=== PATIENT | female | born 1975 | race Caucasian/White ===

== ENCOUNTER 2016-09-28 19:51 | Inpatient (IN) | payer BC ==
[2016-09-28] MEDS ORDERED: TRANEXAMIC ACID 1,000 MG in SODIUM CHLORIDE 0.9% 100 ML IV STA (19:58)
[2016-09-28] MEDS ORDERED: TRANEXAMIC ACID 1,000 MG in SODIUM CHLORIDE 0.9% 250 ML IV ONE (19:59)
[2016-09-28] MEDS ORDERED: RX INFO: IV CONTRAST WAS GIVEN 1 EACH MISC MISCELLANE PRN (20:07)
--- NOTE | 2016-09-28 20:23 | XR ---
EXAMINATION TYPE: XR pelvis AP view DATE OF EXAM: 09/28/2016 CLINICAL HISTORY: Pain after injury TECHNIQUE: A single AP view of the pelvis is obtained. COMPARISON: None. FINDINGS: There is no acute fracture/dislocation evident in the pelvis. The hip and sacroiliac join ts appear symmetric and unremarkable. The overlying soft tissue appears unremarkable. IMPRESSION: There is no acute fracture or dislocation in the pelvis.
--- NOTE | 2016-09-28 20:24 | XR ---
EXAMINATION TYPE: XR chest 1V portable DATE OF EXAM: 09/28/2016 COMPARISON: NONE HISTORY: Pain after injury TECHNIQUE: Single supine frontal view of the chest is obtained. FINDINGS: There is no focal air space opacity, pleural effusion, or pneumothorax seen. The cardiac silhouette size is within normal limits. The osseous structures are intact. IMPRESSION: No acute process.
[2016-09-28 20:27] LABS: Glucose,Whole Blood 117 mg/dL (75-99)
[2016-09-28 20:43] LABS: Basophils % (A) 0 %; CH 35.6; CHCM 34.2; Eosinophils # (A) 0.1 k/uL (0-0.7); Eosinophils % (A) 2 %; HCT 34.9 % (34.0-46.0); HDW 2.58; HGB 12.1 gm/dL (11.4-16.0); Luc # (Auto) 0.08; Luc % (Auto) 1; Lymphocytes # (A) 1.4 k/uL (1.0-4.8); Lymphocytes % (A) 16 %; MCH 36.1 pg (25.0-35.0); MCHC 34.5 g/dL (31.0-37.0); MCV 104.6 fL (80.0-100.0); Macrocytosis Moderate; Mean Platelet Volume 8.9; Monocytes # (A) 0.3 k/uL (0-1.0); Monocytes % (A) 4 %; Neutrophils # (A) 6.6 k/uL (1.3-7.7); Neutrophils % (A) 78 %; RBC 3.34 m/uL (3.80-5.40); RDW 15.4 % (11.5-15.5); WBC 8.6 k/uL (3.8-10.6); WBC (Perox) 8.69
[2016-09-28 20:51] LABS: INR 1.3 (<1.1); Partial Thromboplastin Time 25.8 sec (22.0-30.0); Prothrombin Time 13.2 sec (9.0-12.0)
[2016-09-28 20:52] LABS: ALT 38 U/L (9-52); AST 47 U/L (14-36); Alcohol 69 mg/dL; Alkaline Phosphatase 67 U/L (38-126); Amylase 42 U/L (30-110); Anion Gap 10 mmol/L; Blood Urea Nitrogen 6 mg/dL (7-17); Calcium 7.6 mg/dL (8.4-10.2); Carbon Dioxide 17 mmol/L (22-30); Chloride 114 mmol/L (98-107); Glucose 150 mg/dL (74-99); Non-African American GFR(MDRD) >60 (>60 ml/min/1.73 sqM); Potassium 3.7 mmol/L (3.5-5.1); Sodium 141 mmol/L (137-145); Total Protein 5.1 g/dL (6.3-8.2)
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
[2016-09-28] MEDS ORDERED: NALOXONE 0.4 MG/ML 1 ML VIAL IV PRN (20:58)
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
[2016-09-28] MEDS ORDERED: fentaNYL (PF) 50 MCG/ML 2 ML AMP ONE (21:02)
[2016-09-28] MEDS ORDERED: GLYCOPYRROLATE 0.2 MG/ML 2 ML VIAL ONE (21:02)
[2016-09-28] MEDS ORDERED: SUCCINYLCHOLINE CHLORIDE 100 MG/5 ML SYR IV ONE (21:02)
[2016-09-28] MEDS ORDERED: ETOMIDATE 2 MG/ML 10 ML VIAL ONE (21:02)
[2016-09-28] MEDS ORDERED: NEOSTIGMINE 1 MG/ML 10 ML VIAL ONE (21:02)
[2016-09-28] MEDS ORDERED: LACTATED RINGERS 1,000 ML IV ONE ×3 (21:02→23:14)
[2016-09-28] MEDS ORDERED: ALBUMIN HUMAN 5% 250 ML BOTTLE IVPB ONE (21:02)
[2016-09-28] MEDS ORDERED: LIDOCAINE 1% INJ 10MG/ML (20 ML MDV) ONE (21:02)
[2016-09-28] MEDS ORDERED: MIDAZOLAM 2 MG/2 ML VIAL ONE (21:02)
[2016-09-28] MEDS ORDERED: PHENYLEPHRINE-0.9% NACL SYG 1 MG/10 ML SYRINGE ONE (21:02)
[2016-09-28] MEDS ORDERED: ROCURONIUM BROMIDE 10 MG/ML 10 ML VIAL IV ONE (21:02)
[2016-09-28] MEDS ORDERED: ONDANSETRON 4 MG/2 ML VIAL ONE (21:02)
[2016-09-28] MEDS ORDERED: SODIUM CHLORIDE 0.9% 100 ML with ceFAZolin 2,000 MG IV ONE ×2 (21:17)
[2016-09-28] MEDS ORDERED: AMPICILLIN 1,000 MG in SODIUM CHLORIDE 0.9% 50 ML IVPB STA (21:29)
[2016-09-28] MEDS ORDERED: metroNIDAZOLE-NS PMX 500 MG in SALINE 1 100ML.BAG IVPB STA (21:30)
[2016-09-28] MEDS ORDERED: GENTAMICIN IN NACL ISO-OSM PMX 80 MG in SALINE 1 100ML.BAG IVPB STA (21:31)
[2016-09-28] MEDS ORDERED: BUPIVACAINE (PF) 0.25% 30 ML VIAL SQ ONE ×2 (21:59)
--- NOTE | 2016-09-28 22:13 | P.OP ---
Date of Procedure: 09/28/16 Preoperative Diagnosis: Vaginal hemorrhage Vaginal laceration Postoperative Diagnosis: Vaginal hemorrhage Left Vaginal sidewall and sulcus laceration Procedure(s) Performed: Pair of left vaginal sidewall and sulcus laceration Implants: Anesthesia: SHERRONA Surgeon: Whit Madden Estimated Blood Loss (ml): 30 IV fluids (ml): 1,000 Urine output (ml): 250 Pathology: none sent Condition: stable Disposition: PACU Indications for Procedure: Vaginal hemorrhage with large vaginal laceration Operative Findings: Gaping T shaped left vaginal sidewall laceration beginning 3 cm distal to the hymeneal ring to posterior and left of the cervix Description of Procedure: The patient was transported from the emergency room to the operating room where general anesthetic was administered without incident. She was in positioned, prepped and draped in the dorsal high lithotomy position. Ziegler catheter was placed and copious clear urine was obtained. The vagina was carefully prepped. Weighted speculum was placed in the vagina and an anterior retractor was placed. A large gaping laceration starting from approximately 3 cm distal to the hymeneal ring extending to the posterior fourchette and sulcus in a T- shaped fashion. 0 Vicryl suture was utilized to repair the top of the T shape laceration. 3 interrupted sutures were then placed deep in the sulcal laceration to reapproximate the tissue. The vaginal laceration was then closed in a running locked fashion to the base of the T-shaped laceration. The rest of the vagina was thoroughly inspected including the cervix and no further lacerations were noted. Careful rectal examination was performed and did not appear to be any suture involvement in the rectum and there was no palpable mass consistent with hematoma. The case was then turned over to Dr. Oliver for diagnostic laparoscopy.
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
[2016-09-28] MEDS ORDERED: HYDROcodone/APAP 5-325MG 1 EACH TAB PO PRN (22:18)
[2016-09-28 23:02] LABS: Anisocytosis Slight; Basophils % (A) 0 %; CH 32.4; CHCM 33.7; Eosinophils # (A) 0.1 k/uL (0-0.7); Eosinophils % (A) 1 %; HCT 34.5 % (34.0-46.0); HDW 2.67; HGB 12.3 gm/dL (11.4-16.0); Luc # (Auto) 0.09; Luc % (Auto) 1; Lymphocytes # (A) 0.8 k/uL (1.0-4.8); Lymphocytes % (A) 10 %; MCH 34.4 pg (25.0-35.0); MCHC 35.6 g/dL (31.0-37.0); Macrocytosis Slight; Mean Platelet Volume 7.7; Monocytes # (A) 0.3 k/uL (0-1.0); Monocytes % (A) 4 %; Neutrophils # (A) 6.7 k/uL (1.3-7.7); Neutrophils % (A) 84 %; RBC 3.57 m/uL (3.80-5.40); RDW 16.8 % (11.5-15.5); WBC (Perox) 7.87
[2016-09-28 23:08] LABS: MCV 96.6 fL (80.0-100.0)
[2016-09-28 23:47] LABS: Glucose,Whole Blood 121 mg/dL (75-99)
[2016-09-28] MEDS: ONDANSETRON 4 MG/2 ML VIAL IVP PRN (23:57)
[2016-09-28] MEDS: HYDROmorphone 1 MG/ML 1 ML SYRINGE IVP PRN (23:58)
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
[2016-09-29] MEDS ORDERED: AMPICILLIN 1,000 MG in SODIUM CHLORIDE 0.9% 50 ML IVPB SCH ×2
[2016-09-29] MEDS: HEPARIN SODIUM,PORCINE 5,000 UNIT/ML 1 ML VIAL SQ SCH ×3 (00:25→17:03)
[2016-09-29] MEDS ORDERED: ACETAMINOPHEN IV (For NPO) 1,000 MG in EMPTY BAG 1 BAG IVPB ONE (00:35)
[2016-09-29] MEDS: METOCLOPRAMIDE 5 MG/ML 2 ML VIAL IVP PRN ×4 (00:53→19:29)
[2016-09-29 01:18] VITALS: BMI 21.6
[2016-09-29 02:31] LABS: Appearance,Urine Clear (Clear); Bilirubin,Urine Negative (Negative); Glucose,Urine (UA) Negative (Negative); Ketones,Urine Negative (Negative); Leukocyte Esterase,Urine Negative (Negative); Nitrite,Urine Negative (Negative); Protein,Urine Negative (Negative); Specific Gravity,Urine 1.014 (1.001-1.035); UA Billing (MACRO vs. MICRO) CHEM; Urobilinogen,Urine <2.0 mg/dL (<2.0)
[2016-09-29] MEDS: HYDROmorphone 1 MG/ML 1 ML SYRINGE IVP PRN ×7 (02:57→22:35)
[2016-09-29] MEDS: diphenhydrAMINE 50 MG/ML 1 ML VIAL IVP PRN ×2 (04:58→11:59)
[2016-09-29 05:07] LABS: ALT 32 U/L (9-52); AST 34 U/L (14-36); Alkaline Phosphatase 49 U/L (38-126); Amylase 32 U/L (30-110); Anion Gap 5 mmol/L; Blood Urea Nitrogen 4 mg/dL (7-17); Calcium 6.9 mg/dL (8.4-10.2); Carbon Dioxide 21 mmol/L (22-30); Chloride 111 mmol/L (98-107); Glucose 105 mg/dL (74-99); Magnesium 1.4 mg/dL (1.6-2.3); Non-African American GFR(MDRD) >60 (>60 ml/min/1.73 sqM); Phosphorous 2.2 mg/dL (2.5-4.5); Potassium 3.9 mmol/L (3.5-5.1); Sodium 137 mmol/L (137-145); Total Bilirubin 2.1 mg/dL (0.2-1.3); Total Protein 4.7 g/dL (6.3-8.2)
[2016-09-29 05:43] LABS: Anisocytosis Slight; Basophils % (A) 0 %; CH 32.7; CHCM 33.9; Eosinophils # (A) 0.1 k/uL (0-0.7); Eosinophils % (A) 1 %; HCT 31.7 % (34.0-46.0); HDW 2.73; HGB 10.9 gm/dL (11.4-16.0); Luc # (Auto) 0.08; Luc % (Auto) 1; Lymphocytes # (A) 1.3 k/uL (1.0-4.8); Lymphocytes % (A) 17 %; MCH 33.5 pg (25.0-35.0); MCHC 34.6 g/dL (31.0-37.0); MCV 96.8 fL (80.0-100.0); Macrocytosis Slight; Mean Platelet Volume 8.2; Monocytes # (A) 0.4 k/uL (0-1.0); Monocytes % (A) 5 %; Neutrophils # (A) 5.8 k/uL (1.3-7.7); Neutrophils % (A) 76 %; RBC 3.27 m/uL (3.80-5.40); RDW 17.6 % (11.5-15.5); WBC 7.7 k/uL (3.8-10.6); WBC (Perox) 7.95
[2016-09-29] MEDS ORDERED: GENTAMICIN 120 MG in SODIUM CHLORIDE 0.9% 100 ML IVPB SCH (06:00)
[2016-09-29] MEDS ORDERED: SODIUM PHOSPHATE 10 MMOL in SODIUM CHLORIDE 0.9% 250 ML IVPB ONE (07:00)
[2016-09-29] MEDS: MAGNESIUM SULFATE-D5W PMX 1 GM in DEXTROSE/WATER 1 100ML.BAG IVPB SCH ×3 (07:39→10:46)
[2016-09-29] MEDS: metroNIDAZOLE-NS PMX 500 MG in SALINE 1 100ML.BAG IVPB SCH ×2 (07:43→17:01)
[2016-09-29] MEDS: DOCUSATE 100 MG CAP PO SCH ×2 (08:13→20:50)
[2016-09-29] MEDS ORDERED: PANTOPRAZOLE 40 MG/10 ML VIAL IV SCH (09:00)
--- NOTE | 2016-09-29 09:19 | P.PN ---
Subjective Principal diagnosis: Traumatic vaginal laceration She is resting comfortably this morning complaining of some moderate lower abdominal cramping and pressure. No active vaginal bleeding throughout the night. 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 Objective - Vital Signs Vital signs: Vital Signs Temp 99.1 F 09/29/16 08:00 Pulse 77 09/29/16 09:00 Resp 19 09/29/16 09:00 BP 88/59 09/29/16 09:00 Pulse Ox 95 09/29/16 09:00 Intake & Output 09/28/16 09/29/16 09/29/16 18:59 06:59 18:59 Intake Total 6210 325 Output Total 2210 82 Balance 4000 243 Weight 66.5 kg Intake: IV 2950 325 ACETAMINOPHEN IV (For NPO 100 ) 1,000 mg In Empty Bag 1 bag @ 400 mls/hr IVPB ONCE ONE Rx#:[id number] D5-0.45% NaCl with KCl 1000 125 20Meq/l 1,000 ml @ 125 mls/hr IV .Q8H LACEY Rx#: [id number] Gentamicin 120 mg In 100 Sodium Chloride 0.9% 100 ml @ 100.98 mls/hr IVPB Q8H LACEY Rx#:[id number] Magnesium Sulfate-D5w Pmx 100 1 gm In Dextrose/Water 1 100ml.bag @ 100 mls/hr IVPB Q1H LACEY Rx#: [id number] metroNIDAZOLE-NS PMX 500 100 mg In Saline 1 100ml.bag @ 100 mls/hr IVPB Q8HR LACEY Rx#:[id number] Amount of Fluid Infused ( 3200 ml) Oral 60 Output: Urine 2030 82 Emesis 150 Estimated Blood Loss 30 Other: Voiding Method Indwelling Catheter Indwelling Catheter - Exam Abdomen is slim and soft with mild tenderness. Nondistended, no rebound and no guarding. Examination of the external genitalia reveals no active vaginal bleeding - Labs CBC & Chem 7: 09/29/16 04:38 09/29/16 04:38 Labs: Abnormal Lab Results - Last 24 Hours (Table) 09/28/16 09/28/16 09/28/16 Range/Units 20:07 20:15 20:15 RBC 3.34 L (3.80-5.40) m/uL Hgb (11.4-16.0) gm/dL Hct (34.0-46.0) % MCV 104.6 H (80.0-100.0) fL MCH 36.1 H (25.0-35.0) pg RDW (11.5-15.5) % Plt Count (150-450) k/uL Lymphocytes # (1.0-4.8) k/uL PT (9.0-12.0) sec Chloride (98-107) mmol/L Carbon Dioxide (22-30) mmol/L BUN (7-17) mg/dL Glucose (74-99) mg/dL POC Glucose (mg/dL) 117 H (75-99) mg/dL Calcium (8.4-10.2) mg/dL Phosphorus (2.5-4.5) mg/dL Magnesium (1.6-2.3) mg/dL Total Bilirubin (0.2-1.3) mg/dL AST (14-36) U/L Total Protein (6.3-8.2) g/dL Albumin (3.5-5.0) g/dL Lipase (23-300) U/L Crossmatch See Detail 09/28/16 09/28/16 09/28/16 Range/Units 20:15 20:15 22:43 RBC 3.57 L (3.80-5.40) m/uL Hgb (11.4-16.0) gm/dL Hct (34.0-46.0) % MCV (80.0-100.0) fL MCH (25.0-35.0) pg RDW 16.8 H (11.5-15.5) % Plt Count 105 L (150-450) k/uL Lymphocytes # 0.8 L (1.0-4.8) k/uL PT 13.2 H (9.0-12.0) sec Chloride 114 H (98-107) mmol/L Carbon Dioxide 17 L (22-30) mmol/L BUN 6 L (7-17) mg/dL Glucose 150 H (74-99) mg/dL POC Glucose (mg/dL) (75-99) mg/dL Calcium 7.6 L (8.4-10.2) mg/dL Phosphorus (2.5-4.5) mg/dL Magnesium (1.6-2.3) mg/dL Total Bilirubin (0.2-1.3) mg/dL AST 47 H (14-36) U/L Total Protein 5.1 L (6.3-8.2) g/dL Albumin 2.5 L (3.5-5.0) g/dL Lipase 389 H (23-300) U/L Crossmatch 09/28/16 09/29/16 09/29/16 Range/Units 23:46 04:38 04:38 RBC 3.27 L (3.80-5.40) m/uL Hgb 10.9 L (11.4-16.0) gm/dL Hct 31.7 L (34.0-46.0) % MCV (80.0-100.0) fL MCH (25.0-35.0) pg RDW 17.6 H (11.5-15.5) % Plt Count 111 L (150-450) k/uL Lymphocytes # (1.0-4.8) k/uL PT (9.0-12.0) sec Chloride 111 H (98-107) mmol/L Carbon Dioxide 21 L (22-30) mmol/L BUN 4 L (7-17) mg/dL Glucose 105 H (74-99) mg/dL POC Glucose (mg/dL) 121 H (75-99) mg/dL Calcium 6.9 L (8.4-10.2) mg/dL Phosphorus 2.2 L (2.5-4.5) mg/dL Magnesium 1.4 L (1.6-2.3) mg/dL Total Bilirubin 2.1 H (0.2-1.3) mg/dL AST (14-36) U/L Total Protein 4.7 L (6.3-8.2) g/dL Albumin 2.5 L (3.5-5.0) g/dL Lipase 332 H (23-300) U/L Crossmatch Assessment and Plan (1) Vaginal laceration Status: Acute (2) Acute blood loss anemia Status: Acute (3) Vaginal hemorrhage Status: Acute Plan: Postop day 1 status post repair of traumatic vaginal laceration and diagnostic laparoscopy. Events and operative findings reviewed with the patient in detail this morning and all questions were answered. She has no active vaginal bleeding at this point and her hemoglobin is stable status post 4 units of packed red blood cells. Continue current ICU management and electrolyte correction.
[2016-09-29] MEDS: ONDANSETRON 4 MG/2 ML VIAL IVP PRN (09:52)
--- NOTE | 2016-09-29 09:59 | P.CNPUL ---
History of Present Illness Consult date: 09/29/16 Requesting physician: Chad Oliver Reason for consult: other (Critical Care management) Chief complaint: Vaginal bleeding History of present illness: This is a very pleasant 41-year-old female patient who follows with Dr. Benitez in [place]. She has no significant medical history. On no home medications. Only previous surgery is tonsillectomy. She does smoke on occasion and occasional alcohol consumption. No daily smoking. No illicit drugs. Yesterday she was water skiing out in [place] on a large pond where she fell off her ski's and landed quite hard. After getting out of the water she noted she was significant bleeding from the vaginal area. EMS was called and they did estimate approximately 1 L of blood loss at the seen. She presented here to the emergency room for the same. Continue hemoglobin 12.1, platelets 161,000 Alcohol level was 69. She was seen in the emergency room by Dr. Oliver and Dr. Madden. She was found to have a 4 inch laceration in her vaginal wall. She was taken for urgent repair. She had also undergone an exploratory laparotomy he was also complaining of right upper quadrant tenderness and rib pain without any significant findings or internal bleeding. He is admitted to the intensive care unit for close observation overnight. She is seen today in consultation. Presently, she is awake and alert in no acute distress. She is maintaining good O2 saturations in the 90s on room air. She's been hemodynamically stable. Requiring any pressors. Current hemoglobin 10.9. She is status post 4 units of packed red blood cells in total. D5 0.45 with 20 mEq of potassium at 125 MLS per hour. She is also having a magnesium and phosphorus being replaced. Currently on metronidazole and gentamicin. Her pain is well controlled. Review of Systems 14 point review of system was conducted. All negative other than as mentioned in HPI. Past Medical History Past Medical History: No Reported History History of Any Multi-Drug Resistant Organisms: None Reported Past Surgical History: Tonsillectomy Additional Past Surgical History / Comment(s): Dilation and curtlage Past Anesthesia/Blood Transfusion Reactions: Postoperative Nausea & Vomiting ( PONV) Past Psychological History: No Psychological Hx Reported Smoking Status: Light tobacco smoker Past Alcohol Use History: Occasional Past Drug Use History: None Reported Medications and Allergies Home Medications Medication Instructions Recorded Confirmed Type No Known Home Medications [No 09/28/16 09/28/16 History Known Home Medications] Allergies Allergy/AdvReac Type Severity Reaction Status Date / Time Penicillins Allergy Unknown Verified 09/28/16 20:18 Childhood Physical Exam Vitals: Vital Signs Temp Pulse Pulse Pulse Resp BP BP 09/29/16 09:00 77 19 88/59 09/29/16 08:50 09/29/16 08:30 78 12 87/58 09/29/16 08:00 99.1 F 79 12 87/58 09/29/16 07:30 81 12 95/62 09/29/16 07:00 87 95/62 09/29/16 06:00 75 22 92/63 09/29/16 05:30 76 14 92/51 09/29/16 05:00 116 H 22 92/51 09/29/16 04:30 80 20 84/53 09/29/16 04:00 97.9 F 80 14 84/53 09/29/16 03:30 87 15 84/56 09/29/16 03:00 83 15 84/56 09/29/16 02:30 89 16 86/52 09/29/16 02:00 90 12 93/55 09/29/16 01:45 89 13 90/53 09/29/16 01:30 90 13 96/55 09/29/16 01:15 91 14 91/60 09/29/16 01:00 87 16 98/63 09/29/16 00:45 92 19 93/61 09/29/16 00:30 93 23 91/60 09/29/16 00:15 97 24 91/61 09/29/16 00:00 98.1 F 98 22 99/63 09/28/16 23:30 80 16 96/50 09/28/16 23:15 83 16 98/64 09/28/16 23:00 88 16 100/66 09/28/16 22:45 89 16 105/68 09/28/16 22:32 90 16 115/71 09/28/16 22:17 98.6 F 105 H 18 115/77 09/28/16 20:00 98.7 F 75 20 93/53 Pulse Ox 09/29/16 09:00 95 09/29/16 08:50 95 09/29/16 08:30 94 L 09/29/16 08:00 95 09/29/16 07:30 94 L 09/29/16 07:00 94 L 09/29/16 06:00 98 09/29/16 05:30 97 09/29/16 05:00 99 09/29/16 04:30 96 09/29/16 04:00 95 09/29/16 03:30 96 09/29/16 03:00 96 09/29/16 02:30 95 09/29/16 02:00 95 09/29/16 01:45 95 09/29/16 01:30 95 09/29/16 01:15 95 09/29/16 01:00 95 09/29/16 00:45 97 09/29/16 00:30 95 09/29/16 00:15 99 09/29/16 00:00 99 09/28/16 23:30 100 09/28/16 23:15 100 09/28/16 23:00 100 09/28/16 22:45 100 09/28/16 22:32 100 09/28/16 22:17 100 09/28/16 20:00 Intake and Output 09/28/16 09/29/16 09/29/16 22:59 06:59 14:59 Intake Total 4300 1910 325 Output Total 280 1930 82 Balance 4020 -20 243 Intake: IV 1100 1850 325 ACETAMINOPHEN IV (For NPO 100 ) 1,000 mg In Empty Bag 1 bag @ 400 mls/hr IVPB ONCE ONE Rx#:[id number] D5-0.45% NaCl with KCl 1000 125 20Meq/l 1,000 ml @ 125 mls/hr IV .Q8H [facility] Rx#: [id number] Gentamicin 120 mg In 100 Sodium Chloride 0.9% 100 ml @ 100.98 mls/hr IVPB Q8H [facility] Rx#:[id number] Magnesium Sulfate-D5w Pmx 100 1 gm In Dextrose/Water 1 100ml.bag @ 100 mls/hr IVPB Q1H [facility] Rx#: [id number] metroNIDAZOLE-NS PMX 500 100 mg In Saline 1 100ml.bag @ 100 mls/hr IVPB Q8HR [facility] Rx#:[id number] Amount of Fluid Infused ( 3200 ml) Oral 60 Output: Urine 250 1780 82 Emesis 150 Estimated Blood Loss 30 Other: Voiding Method Indwelling Catheter Indwelling Catheter Weight 58.967 kg 66.5 kg GENERAL EXAM: Alert, fairly comfortable in no apparent distress. HEAD: Normocephalic. EYES: Normal reaction of pupils, equal size. NOSE: Clear with pink turbinates. THROAT: No erythema or exudates. NECK: No masses, no JVD. CHEST: No chest wall deformity. LUNGS: Equal air entry with no crackles, wheeze, rhonchi or dullness. CVS: S1 and S2 normal with no audible murmurs, regular rhythm. ABDOMEN: Soft, tender to palpation. Surgical incisions clean dry well approximated. No vaginal bleeding noted. SPINE: No scoliosis or deformity SKIN: No rashes CENTRAL NERVOUS SYSTEM: No focal deficits, tone is normal in all 4 extremities. Extremities: There is no peripheral edema. No clubbing, no cyanosis. Peripheral pulses are intact. Results - Laboratory Findings CBC and BMP: 09/29/16 04:38 09/29/16 04:38 PT/INR, D-dimer PT 13.2 sec (9.0-12.0) H 09/28/16 20:15 INR 1.3 (<1.1) 09/28/16 20:15 Abnormal lab findings: Abnormal Labs 09/28/16 09/28/16 09/28/16 20:07 20:15 20:15 RBC 3.34 L Hgb Hct MCV 104.6 H MCH 36.1 H RDW Plt Count Lymphocytes # PT Chloride Carbon Dioxide BUN Glucose POC Glucose (mg/dL) 117 H Calcium Phosphorus Magnesium Total Bilirubin AST Total Protein Albumin Lipase Crossmatch See Detail 09/28/16 09/28/16 09/28/16 20:15 20:15 22:43 RBC 3.57 L Hgb Hct MCV MCH RDW 16.8 H Plt Count 105 L Lymphocytes # 0.8 L PT 13.2 H Chloride 114 H Carbon Dioxide 17 L BUN 6 L Glucose 150 H POC Glucose (mg/dL) Calcium 7.6 L Phosphorus Magnesium Total Bilirubin AST 47 H Total Protein 5.1 L Albumin 2.5 L Lipase 389 H Crossmatch 09/28/16 09/29/16 09/29/16 23:46 04:38 04:38 RBC 3.27 L Hgb 10.9 L Hct 31.7 L MCV MCH RDW 17.6 H Plt Count 111 L Lymphocytes # PT Chloride 111 H Carbon Dioxide 21 L BUN 4 L Glucose 105 H POC Glucose (mg/dL) 121 H Calcium 6.9 L Phosphorus 2.2 L Magnesium 1.4 L Total Bilirubin 2.1 H AST Total Protein 4.7 L Albumin 2.5 L Lipase 332 H Crossmatch - Diagnostic Findings Chest x-ray: image reviewed Assessment and Plan Plan: Impression: #1 Trauma with vaginal laceration secondary to what her skiing accident, status post repair. Postoperative day #1. #2 Acute anemia secondary to above requiring 4 units of packed red blood cell lesions. Current hemoglobin 10.9. #3 Right upper quadrant tenderness, status post exploratory laparotomy with out any significant findings or bleeding. Postoperative day #1. #4 Alcohol use, serum alcohol level 69. #5 History of occasional smoking. Plan: The patient was seen and evaluated by her Fannyha. Her chest x-ray and labs were reviewed. The patient is currently stable from the pulmonary and critical care standpoint and could be transferred out of the intensive care unit later today if she remains hemodynamically stable. No further bleeding noted. We will continue to follow and make further recommendations based on her clinical status. Time with Patient: Greater than 30
[2016-09-29] MEDS: D5-0.45% NACL WITH KCL 20MEQ/L 1,000 ML IV SCH ×3 (10:46→20:50)
--- NOTE | 2016-09-29 13:05 | P.PN ---
Subjective Principal diagnosis: Water skiing accident Patient complaining of discomfort overnight in the region of the perineum. Positive flatus, no bowel movement. Some nausea and small amount of dry heaves. Nausea seems to be when she is receiving her IV Dilaudid. Her hemoglobin is stable. She is afebrile. Minimal abdominal discomforts. Objective - Vital Signs Vital signs: Vital Signs Temp 97.8 F 09/29/16 12:00 Pulse 88 09/29/16 12:00 Resp 15 09/29/16 12:00 BP 92/56 09/29/16 12:00 Pulse Ox 96 09/29/16 12:00 Intake & Output 09/28/16 09/29/16 09/29/16 18:59 06:59 18:59 Intake Total 6210 1000 Output Total 2210 247 Balance 4000 753 Weight 66.5 kg Intake: IV 2950 900 ACETAMINOPHEN IV (For NPO 100 ) 1,000 mg In Empty Bag 1 bag @ 400 mls/hr IVPB ONCE ONE Rx#:[id number] D5-0.45% NaCl with KCl 1000 250 20Meq/l 1,000 ml @ 125 mls/hr IV .Q8H [facility] Rx#: [id number] Gentamicin 120 mg In 100 Sodium Chloride 0.9% 100 ml @ 100.98 mls/hr IVPB Q8H [facility] Rx#:[id number] Magnesium Sulfate-D5w Pmx 300 1 gm In Dextrose/Water 1 100ml.bag @ 100 mls/hr IVPB Q1H [facility] Rx#: [id number] Sodium Phosphate 10 mmol 250 In Sodium Chloride 0.9% 250 ml @ 125 mls/hr IVPB ONCE ONE Rx#:[id number] metroNIDAZOLE-NS PMX 500 100 mg In Saline 1 100ml.bag @ 100 mls/hr IVPB Q8HR [facility] Rx#:[id number] Amount of Fluid Infused ( 3200 ml) Oral 60 100 Output: Urine 2030 247 Emesis 150 Estimated Blood Loss 30 Other: Voiding Method Indwelling Catheter Indwelling Catheter - Exam Abdomen: Soft, minimal distention, incisions clean and dry, minimal tenderness at incision site - Labs CBC & Chem 7: 09/29/16 04:38 09/29/16 04:38 Labs: Abnormal Lab Results - Last 24 Hours (Table) 09/28/16 09/28/16 09/28/16 Range/Units 20:07 20:15 20:15 RBC 3.34 L (3.80-5.40) m/uL Hgb (11.4-16.0) gm/dL Hct (34.0-46.0) % MCV 104.6 H (80.0-100.0) fL MCH 36.1 H (25.0-35.0) pg RDW (11.5-15.5) % Plt Count (150-450) k/uL Lymphocytes # (1.0-4.8) k/uL PT (9.0-12.0) sec Chloride (98-107) mmol/L Carbon Dioxide (22-30) mmol/L BUN (7-17) mg/dL Glucose (74-99) mg/dL POC Glucose (mg/dL) 117 H (75-99) mg/dL Calcium (8.4-10.2) mg/dL Phosphorus (2.5-4.5) mg/dL Magnesium (1.6-2.3) mg/dL Total Bilirubin (0.2-1.3) mg/dL AST (14-36) U/L Total Protein (6.3-8.2) g/dL Albumin (3.5-5.0) g/dL Lipase (23-300) U/L Crossmatch See Detail 09/28/16 09/28/16 09/28/16 Range/Units 20:15 20:15 22:43 RBC 3.57 L (3.80-5.40) m/uL Hgb (11.4-16.0) gm/dL Hct (34.0-46.0) % MCV (80.0-100.0) fL MCH (25.0-35.0) pg RDW 16.8 H (11.5-15.5) % Plt Count 105 L (150-450) k/uL Lymphocytes # 0.8 L (1.0-4.8) k/uL PT 13.2 H (9.0-12.0) sec Chloride 114 H (98-107) mmol/L Carbon Dioxide 17 L (22-30) mmol/L BUN 6 L (7-17) mg/dL Glucose 150 H (74-99) mg/dL POC Glucose (mg/dL) (75-99) mg/dL Calcium 7.6 L (8.4-10.2) mg/dL Phosphorus (2.5-4.5) mg/dL Magnesium (1.6-2.3) mg/dL Total Bilirubin (0.2-1.3) mg/dL AST 47 H (14-36) U/L Total Protein 5.1 L (6.3-8.2) g/dL Albumin 2.5 L (3.5-5.0) g/dL Lipase 389 H (23-300) U/L Crossmatch 09/28/16 09/29/16 09/29/16 Range/Units 23:46 04:38 04:38 RBC 3.27 L (3.80-5.40) m/uL Hgb 10.9 L (11.4-16.0) gm/dL Hct 31.7 L (34.0-46.0) % MCV (80.0-100.0) fL MCH (25.0-35.0) pg RDW 17.6 H (11.5-15.5) % Plt Count 111 L (150-450) k/uL Lymphocytes # (1.0-4.8) k/uL PT (9.0-12.0) sec Chloride 111 H (98-107) mmol/L Carbon Dioxide 21 L (22-30) mmol/L BUN 4 L (7-17) mg/dL Glucose 105 H (74-99) mg/dL POC Glucose (mg/dL) 121 H (75-99) mg/dL Calcium 6.9 L (8.4-10.2) mg/dL Phosphorus 2.2 L (2.5-4.5) mg/dL Magnesium 1.4 L (1.6-2.3) mg/dL Total Bilirubin 2.1 H (0.2-1.3) mg/dL AST (14-36) U/L Total Protein 4.7 L (6.3-8.2) g/dL Albumin 2.5 L (3.5-5.0) g/dL Lipase 332 H (23-300) U/L Crossmatch Microbiology - Last 24 Hours (Table) 09/29/16 02:00 Urine Culture - Preliminary Urine,Catheterized Assessment and Plan (1) Vaginal hemorrhage Narrative/Plan: Continue to follow labs. Continue antibiotics. Add Toradol for pain control. Anticipate probable discharge tomorrow. May transfer out of ICU. Status: Acute
--- NOTE | 2016-09-29 13:10 | P.PN ---
Subjective Principal diagnosis: Vaginal laceration after water skiing accident Patient underwent operative repair of her vaginal laceration and diagnostic laparoscopy last night. Objective - Vital Signs Vital signs: Vital Signs Temp 97.8 F 09/29/16 12:00 Pulse 88 09/29/16 12:00 Resp 15 09/29/16 12:00 BP 92/56 09/29/16 12:00 Pulse Ox 96 09/29/16 12:00 Intake & Output 09/28/16 09/29/16 09/29/16 18:59 06:59 18:59 Intake Total 6210 1000 Output Total 2210 247 Balance 4000 753 Weight 66.5 kg Intake: IV 2950 900 ACETAMINOPHEN IV (For NPO 100 ) 1,000 mg In Empty Bag 1 bag @ 400 mls/hr IVPB ONCE ONE Rx#:[id number] D5-0.45% NaCl with KCl 1000 250 20Meq/l 1,000 ml @ 125 mls/hr IV .Q8H [facility] Rx#: [id number] Gentamicin 120 mg In 100 Sodium Chloride 0.9% 100 ml @ 100.98 mls/hr IVPB Q8H [facility] Rx#:[id number] Magnesium Sulfate-D5w Pmx 300 1 gm In Dextrose/Water 1 100ml.bag @ 100 mls/hr IVPB Q1H [facility] Rx#: [id number] Sodium Phosphate 10 mmol 250 In Sodium Chloride 0.9% 250 ml @ 125 mls/hr IVPB ONCE ONE Rx#:[id number] metroNIDAZOLE-NS PMX 500 100 mg In Saline 1 100ml.bag @ 100 mls/hr IVPB Q8HR [facility] Rx#:[id number] Amount of Fluid Infused ( 3200 ml) Oral 60 100 Output: Urine 2030 247 Emesis 150 Estimated Blood Loss 30 Other: Voiding Method Indwelling Catheter Indwelling Catheter - Constitutional General appearance: Present: cooperative - Respiratory Respiratory: bilateral: CTA - Cardiovascular Rhythm: regular - Gastrointestinal Gastrointestinal Comment(s): Abdomen is soft, nontender. Laparoscopic incision sites are clean - Labs CBC & Chem 7: 09/29/16 04:38 09/29/16 04:38 Labs: Abnormal Lab Results - Last 24 Hours (Table) 09/28/16 09/28/16 09/28/16 Range/Units 20:07 20:15 20:15 RBC 3.34 L (3.80-5.40) m/uL Hgb (11.4-16.0) gm/dL Hct (34.0-46.0) % MCV 104.6 H (80.0-100.0) fL MCH 36.1 H (25.0-35.0) pg RDW (11.5-15.5) % Plt Count (150-450) k/uL Lymphocytes # (1.0-4.8) k/uL PT (9.0-12.0) sec Chloride (98-107) mmol/L Carbon Dioxide (22-30) mmol/L BUN (7-17) mg/dL Glucose (74-99) mg/dL POC Glucose (mg/dL) 117 H (75-99) mg/dL Calcium (8.4-10.2) mg/dL Phosphorus (2.5-4.5) mg/dL Magnesium (1.6-2.3) mg/dL Total Bilirubin (0.2-1.3) mg/dL AST (14-36) U/L Total Protein (6.3-8.2) g/dL Albumin (3.5-5.0) g/dL Lipase (23-300) U/L Crossmatch See Detail 09/28/16 09/28/16 09/28/16 Range/Units 20:15 20:15 22:43 RBC 3.57 L (3.80-5.40) m/uL Hgb (11.4-16.0) gm/dL Hct (34.0-46.0) % MCV (80.0-100.0) fL MCH (25.0-35.0) pg RDW 16.8 H (11.5-15.5) % Plt Count 105 L (150-450) k/uL Lymphocytes # 0.8 L (1.0-4.8) k/uL PT 13.2 H (9.0-12.0) sec Chloride 114 H (98-107) mmol/L Carbon Dioxide 17 L (22-30) mmol/L BUN 6 L (7-17) mg/dL Glucose 150 H (74-99) mg/dL POC Glucose (mg/dL) (75-99) mg/dL Calcium 7.6 L (8.4-10.2) mg/dL Phosphorus (2.5-4.5) mg/dL Magnesium (1.6-2.3) mg/dL Total Bilirubin (0.2-1.3) mg/dL AST 47 H (14-36) U/L Total Protein 5.1 L (6.3-8.2) g/dL Albumin 2.5 L (3.5-5.0) g/dL Lipase 389 H (23-300) U/L Crossmatch 09/28/16 09/29/16 09/29/16 Range/Units 23:46 04:38 04:38 RBC 3.27 L (3.80-5.40) m/uL Hgb 10.9 L (11.4-16.0) gm/dL Hct 31.7 L (34.0-46.0) % MCV (80.0-100.0) fL MCH (25.0-35.0) pg RDW 17.6 H (11.5-15.5) % Plt Count 111 L (150-450) k/uL Lymphocytes # (1.0-4.8) k/uL PT (9.0-12.0) sec Chloride 111 H (98-107) mmol/L Carbon Dioxide 21 L (22-30) mmol/L BUN 4 L (7-17) mg/dL Glucose 105 H (74-99) mg/dL POC Glucose (mg/dL) 121 H (75-99) mg/dL Calcium 6.9 L (8.4-10.2) mg/dL Phosphorus 2.2 L (2.5-4.5) mg/dL Magnesium 1.4 L (1.6-2.3) mg/dL Total Bilirubin 2.1 H (0.2-1.3) mg/dL AST (14-36) U/L Total Protein 4.7 L (6.3-8.2) g/dL Albumin 2.5 L (3.5-5.0) g/dL Lipase 332 H (23-300) U/L Crossmatch Microbiology - Last 24 Hours (Table) 09/29/16 02:00 Urine Culture - Preliminary Urine,Catheterized Assessment and Plan Plan: Status post vaginal laceration after waterskiing accident. Patient is improving. She is most likely being transferred out of the ICU today.
[2016-09-29] MEDS ORDERED: LEVOFLOXACIN 500MG-D5W PMX 500 MG in DEXTROSE/WATER 1 100ML.BAG IVPB SCH (13:30)
[2016-09-29] MEDS: KETOROLAC 30 MG/ML 1 ML VIAL IVP SCH (18:18)
[2016-09-30] MEDS: KETOROLAC 30 MG/ML 1 ML VIAL IVP SCH ×2 (00:03→05:55)
[2016-09-30] MEDS: HEPARIN SODIUM,PORCINE 5,000 UNIT/ML 1 ML VIAL SQ SCH ×2 (00:04→07:48)
[2016-09-30] MEDS: metroNIDAZOLE-NS PMX 500 MG in SALINE 1 100ML.BAG IVPB SCH ×2 (00:04→07:23)
[2016-09-30] MEDS: METOCLOPRAMIDE 5 MG/ML 2 ML VIAL IVP PRN (01:46)
[2016-09-30] MEDS: HYDROmorphone 1 MG/ML 1 ML SYRINGE IVP PRN ×3 (01:46→06:35)
[2016-09-30] MEDS: D5-0.45% NACL WITH KCL 20MEQ/L 1,000 ML IV SCH ×3 (05:06→07:22)
[2016-09-30] MEDS ORDERED: GENTAMICIN TROUGH DUE 1 EACH MISC MISCELLANE ONE (05:30)
--- NOTE | 2016-09-30 06:31 | P.PN ---
Subjective Principal diagnosis: Postoperative day #1 Slept well. Pain better managed. Nausea resolved. Scant to no vaginal flow. Objective - Vital Signs Vital signs: Vital Signs Temp 98.0 F 09/30/16 01:45 Pulse 84 09/30/16 01:45 Resp 16 09/30/16 01:45 BP 97/65 09/30/16 01:45 Pulse Ox 96 09/30/16 01:45 Intake & Output 09/29/16 09/29/16 09/30/16 06:59 18:59 06:59 Intake Total 6210 1250 2000 Output Total 2210 569 4650 Balance 4000 681 -2650 Weight 66.5 kg Intake: IV 2950 1150 1050 ACETAMINOPHEN IV (For NPO 100 ) 1,000 mg In Empty Bag 1 bag @ 400 mls/hr IVPB ONCE ONE Rx#:[id number] D5-0.45% NaCl with KCl 1000 500 950 20Meq/l 1,000 ml @ 125 mls/hr IV .Q8H [facility] Rx#: [id number] Gentamicin 120 mg In 100 Sodium Chloride 0.9% 100 ml @ 100.98 mls/hr IVPB Q8H [facility] Rx#:[id number] Magnesium Sulfate-D5w Pmx 300 1 gm In Dextrose/Water 1 100ml.bag @ 100 mls/hr IVPB Q1H [facility] Rx#: [id number] Sodium Phosphate 10 mmol 250 In Sodium Chloride 0.9% 250 ml @ 125 mls/hr IVPB ONCE ONE Rx#:[id number] metroNIDAZOLE-NS PMX 500 100 100 mg In Saline 1 100ml.bag @ 100 mls/hr IVPB Q8HR [facility] Rx#:[id number] Amount of Fluid Infused ( 3200 ml) Intake, IV Titration 950 Amount D5-0.45% NaCl with KCl 950 20Meq/l 1,000 ml @ 125 mls/hr IV .Q8H [facility] Rx#: [id number] Oral 60 100 Output: Urine 2030 457 4650 Uretheral ([place]) 350 Emesis 150 112 Estimated Blood Loss 30 Other: Voiding Method Indwelling Catheter Indwelling Catheter Indwelling Catheter - Constitutional General appearance: Present: average body habitus, cooperative - EENT Eyes: Present: PERRLA ENT: Present: hearing grossly normal - Respiratory Respiratory: bilateral: CTA - Cardiovascular Rhythm: regular - Gastrointestinal General gastrointestinal: Present: normal bowel sounds - Genitourinary Genitourinary Comment(s): Scant vaginal drainage. - Integumentary Integumentary: Present: normal - Neurologic Neurologic: Present: CNII-XII intact - Musculoskeletal Musculoskeletal: Present: gait normal, strength equal bilaterally - Psychiatric Psychiatric: Present: A&O x's 3, appropriate affect, intact judgment & insight - Labs CBC & Chem 7: 09/29/16 04:38 09/29/16 04:38 Labs: Abnormal Lab Results - Last 24 Hours (Table) 09/28/16 Range/Units 20:15 Crossmatch See Detail Microbiology - Last 24 Hours (Table) 09/29/16 02:00 Urine Culture - Preliminary Urine,Catheterized Assessment and Plan Plan: May advance diet and activity. May shower. Likely discharge home later today per Dr. Emmanuel. Recommended patient follow up in the office with Dr. Madden in 2 weeks. No intercourse, tampons or douching. To use [id number] ibuprofen or Advil products as needed for pain. Time with Patient: Less than 30
[2016-09-30] MEDS ORDERED: PANTOPRAZOLE 40 MG TABLET PO SCH (07:30)
[2016-09-30 07:35] LABS: Anisocytosis Slight; Basophils % (A) 0 %; CHCM 33.7; Eosinophils # (A) 0.3 k/uL (0-0.7); Eosinophils % (A) 6 %; HCT 36.8 % (34.0-46.0); HGB 12.4 gm/dL (11.4-16.0); Luc # (Auto) 0.05; Luc % (Auto) 1; Lymphocytes # (A) 1.2 k/uL (1.0-4.8); Lymphocytes % (A) 20 %; MCH 33.2 pg (25.0-35.0); MCHC 33.7 g/dL (31.0-37.0); MCV 98.6 fL (80.0-100.0); Macrocytosis Slight; Mean Platelet Volume 8.1; Monocytes # (A) 0.2 k/uL (0-1.0); Monocytes % (A) 4 %; Neutrophils % (A) 69 %; RBC 3.73 m/uL (3.80-5.40); RDW 17.6 % (11.5-15.5); WBC 5.8 k/uL (3.8-10.6); WBC (Perox) 6.25
[2016-09-30 07:55] VITALS: TEMP 98.2
[2016-09-30 08:01] LABS: ALT 33 U/L (9-52); AST 25 U/L (14-36); Alkaline Phosphatase 61 U/L (38-126); Anion Gap 5 mmol/L; Blood Urea Nitrogen <2 mg/dL (7-17); Carbon Dioxide 24 mmol/L (22-30); Chloride 109 mmol/L (98-107); Glucose 115 mg/dL (74-99); Magnesium 2.1 mg/dL (1.6-2.3); Non-African American GFR(MDRD) >60 (>60 ml/min/1.73 sqM); Potassium 3.8 mmol/L (3.5-5.1); Sodium 138 mmol/L (137-145); Total Bilirubin 1.7 mg/dL (0.2-1.3); Total Protein 5.4 g/dL (6.3-8.2)
[2016-09-30 08:31] VITALS: BP 95/63; PULSE 79; RESP 18
[2016-09-30] MEDS: DOCUSATE 100 MG CAP PO SCH (09:10)
--- NOTE | 2016-09-30 09:47 | P.DS ---
Providers Date of admission: 09/28/16 20:59 Expected date of discharge: 09/30/16 Attending physician: Chad Oliver Consults: 09/28/16 22:18 Consult Physician Routine Consulting Provider: Jeny Nick Consult Reason/Comments: ICU management Do you want consulting provider notified?: Yes Primary care physician: Stated None Patient Condition at Discharge: Serious Plan - Discharge Summary New Discharge Prescriptions: New Hydrocodone/Acetaminophen [[place] 5-325] 1 - 2 each PO Q4HR PRN #30 tab PRN Reason: pain Discharge Medication List Hydrocodone/Acetaminophen [[place] 5-325] 1 - 2 each PO Q4HR PRN #30 tab 09/29/16 [Rx] Follow up Appointment(s)/Referral(s): Whit Madden MD [STAFF PHYSICIAN] - 2 Weeks None,Stated [Primary Care Provider] - 1 Week Activity/Diet/Wound Care/Special Instructions: Regular diet, resume home meds. Discharge Disposition: HOME SELF-CARE
--- NOTE | 2016-09-30 09:50 | P.PN ---
Progress Note - Text The patient is being seen for Dr. Ford and she is doing much better status post low vaginal laceration and the laparoscopic abdominal exam. Nausea. Had a full breakfast. Usual discomfort the in the vaginal area. On examination the patient is awake alert the cheerful. No fever. Vitals are stable. Abdomen is fairly soft. Of trocar sites are healing nicely with no evidence of infection or complication. No mass or organomegaly or hernias or injury noted. The much improved status post trauma side with the vaginal injury. Hypotension resolved. Recommendation. Patient was seen by Dr. Harry this morning and the discharge was recommended. From a general surgical standpoint she can be discharged to home. Instructions for vaginal injury. Dr. Harry. Advised on a regular diet. May resume home meds. The no heavy lifting or straining for a week. Follow- up with Dr. Madden in about 2 weeks or sooner if necessary. Was given a prescription by Dr. Harry for medical. Also was given a prescription for Levaquin 500 mg 1 by mouth daily for week.
== END 2016-09-30 10:40 | disposition home or self-care (01) | DRG 744 ==
LOC: EC 19:51 → 6PED 20:59 → 6ICU 23:45 → 6PED 09-29 14:28
PROVIDERS: ADMIT Surgery; ATTEND Surgery
PROC: 30233N1 Transfusion of Nonautologous Red Blood Cells into Peripheral Vein, Percutaneous Approach (ICD-10-PCS; 2016-09-28)
PROC: 0WJJ4ZZ Inspection of Pelvic Cavity, Percutaneous Endoscopic Approach (ICD-10-PCS; principal; 2016-09-28 20:48)
PROC: 0UQG7ZZ Repair Vagina, Via Natural or Artificial Opening (ICD-10-PCS; 2016-09-28 20:48)
DX: S31.41XA Laceration without foreign body of vagina and vulva, initial encounter (principal); D62 Acute posthemorrhagic anemia; F17.200 Nicotine dependence, unspecified, uncomplicated; Y93.17 Activity, water skiing and wake boarding; Y92.828 Other wilderness area as the place of occurrence of the external cause; Y90.3 Blood alcohol level of 60-79 mg/100 ml; Z72.89 Other problems related to lifestyle
CPT/HCPCS: 36415; 71010; 72170; 80053; 80320; 81003; 82150; 83690; 83735; 84100; 85025; 85610; 85730; 86850; 86900; 86901; 86920; 87086; 96374; 99291